=== PATIENT | female | born 1970 | race Two or more races ===

== ENCOUNTER 2020-04-17 17:01 | Emergency (ER) | payer OTHER ==
[~2020-04-17] VITALS: Ht 162.6 cm; Wt 54.4 kg
[2020-04-17 17:16] VITALS: BP 115/99
== END 2020-04-17 17:30 | disposition home or self-care (01) ==
LOC: ER 17:01
DX: S80.862A Insect bite (nonvenomous), left lower leg, initial encounter (principal); W57.XXXA Bitten or stung by nonvenomous insect and other nonvenomous arthropods, initial encounter; Y93.89 Activity, other specified; Y92.89 Other specified places as the place of occurrence of the external cause; Y99.8 Other external cause status

== ENCOUNTER 2023-06-09 15:05 | Emergency (ER) | payer OTHER ==
[~2023-06-09] VITALS: Ht 162.6 cm; Wt 56.7 kg
[2023-06-09 16:12] VITALS: BP 105/68; TEMP 98.3; O2SAT 100
[2023-06-09] MEDS ORDERED: CEPH500C2 PO (16:38)
[2023-06-09] MEDS ORDERED: CEPHALEXIN MONOHYDRATE 500 MG CAPSULE PO ONE (17:00)
== END 2023-06-09 17:15 | disposition home or self-care (01) ==
LOC: ER 15:09
DX: L03.116 Cellulitis of left lower limb (principal)